=== PATIENT | female | born 1970 | race Two or more races ===

== ENCOUNTER 2021-02-10 13:20 | Outpatient (REF) | payer OTHER, SELFPAY ==
--- NOTE | ~2021-02-10 | XR_ITS ---
EXAMINATION: XR PELVIS XR HIP, RIGHT CLINICAL INFORMATION: Pain. COMPARISON: None TECHNIQUE: AP view of the pelvis. AP and frog-leg lateral views of the right hip. FINDINGS: No acute fracture or dislocation. Small right acetabular marginal osteophytes. No osseous erosion. No abnormal soft tissue calcification. XR/XR pelvis 1-2V IMPRESSION: Mild right hip osteoarthritis.
--- NOTE | ~2021-02-10 | XR_ITS ---
EXAMINATION: XR PELVIS XR HIP, RIGHT CLINICAL INFORMATION: Pain. COMPARISON: None TECHNIQUE: AP view of the pelvis. AP and frog-leg lateral views of the right hip. FINDINGS: No acute fracture or dislocation. Small right acetabular marginal osteophytes. No osseous erosion. No abnormal soft tissue calcification. XR/XR hip RT min 2V IMPRESSION: Mild right hip osteoarthritis.
== END 2021-02-10 13:21 | disposition home or self-care (01) ==
LOC: HO.HOSX 13:20
PROVIDERS: Visit Provider Physician Assistant
DX: M25.551 Pain in right hip (principal); M25.562 Pain in left knee; M16.11 Unilateral primary osteoarthritis, right hip; M17.12 Unilateral primary osteoarthritis, left knee; Z88.2 Allergy status to sulfonamides; Z91.030 Bee allergy status
CPT/HCPCS: 72170; 73502

== ENCOUNTER 2021-02-28 09:27 | Outpatient (REF) | payer OTHER, SELFPAY ==
[2021-02-28 11:07] LABS: Hemoglobin 12.7 g/dl (12.0-16.0); Mean Corpuscular HGB Conc 31.8 g/dl (31.0-35.0); Mean Corpuscular Hemoglobin 29.6 pg (27.0-33.0); Mean Corpuscular Volume 93.2 fL (80-98); Mean Platelet Volume 11.5 fL (9.4-12.3); Platelet Count 246 X10*3/uL (160-400); Red Blood Count 4.29 X10*6/uL (4.20-5.50); Red Cell Distribution Width 14.3 % (11.0-16.0); White Blood Count 5.4 X10*3/uL (4.8-10.8)
[2021-02-28 11:37] LABS: Thyroid Stimulating Hormone 0.75 uIU/mL (0.32-4.0)
[2021-02-28 14:40] LABS: CT PCR NOT DETECTED (Not Detect.); NG PCR NOT DETECTED (Not Detect.)
[2021-03-01 10:13] LABS: BV Int Neg Control Negative (Negative); BV Int Pos Control Positive (Positive)
[2021-03-04 06:56] LABS: HPV 16 RNA NOT DETECTED (NOT DETECTED); HPV mRNA E6/E7 rflx Detected (Not Detected)
== END 2021-02-28 09:28 | disposition home or self-care (01) ==
LOC: HO.LAB 09:27
PROVIDERS: PCP Internal Medicine; Visit Provider Advanced Practice Midwife
DX: Z12.4 Encounter for screening for malignant neoplasm of cervix (principal); Z11.51 Encounter for screening for human papillomavirus (HPV); Z11.3 Encounter for screening for infections with a predominantly sexual mode of transmission; N92.0 Excessive and frequent menstruation with regular cycle; N92.1 Excessive and frequent menstruation with irregular cycle
CPT/HCPCS: 36415; 84443; 85027; 87480; 87491; 87510; 87591; 87624; 87625; 87660; 88142

== ENCOUNTER 2021-03-29 13:52 | Outpatient (REF) | payer OTHER, SELFPAY ==
--- NOTE | ~2021-03-29 | US_ITS ---
EXAMINATION: US PELVIS CLINICAL INFORMATION: Excessive and frequent menstruation COMPARISON: None TECHNIQUE: Ultrasound of the pelvis is performed using both transabdominal and transvaginal transducers along with Doppler. Transvaginal imaging is performed due to inadequate visualization transabdominally. FINDINGS: Uterus: The uterus is anteverted anteflexed and measures 10.1 cm in length, 5.8 cm in AP and 6.8 cm in transverse dimension. There are at least 6 fibroids visualized. 1. Posterior fundal fibroid measures 3.9 x 3.6 x 3.5 cm. 2. Left anterior fundal fibroid measures 2.9 x 3.0 x 3.1 cm. 3. Right fundal anterior fibroid measures 1.6 x 1.4 x 1.5 cm. 4. Mid left body fibroid measures 3.9 x 3.8 x 3.7 cm. 5. Mid right body fibroid measures 3.8 x 3.8 x 3.8 cm. 6. Anterior right fibroid measures 0.8 x 0.5 x 0.7 cm. The double wall endometrial thickness is 0.9 mm. Adnexa: The ovaries are not visualized. There is no free fluid in the cul-de-sac. US/US pelvic and transvaginal IMPRESSION: At least 6 uterine fibroids visualized as described above. The uterus is enlarged. The ovaries are not seen. No free fluid in the cul-de-sac.
== END 2021-03-29 13:53 | disposition home or self-care (01) ==
LOC: HO.US 13:52
PROVIDERS: Visit Provider Advanced Practice Midwife
DX: N92.0 Excessive and frequent menstruation with regular cycle (principal)
CPT/HCPCS: 76830; 76856

== ENCOUNTER 2021-03-30 10:00 | Outpatient (REF) | payer OTHER, SELFPAY ==
[2021-03-31 09:28] LABS: BV Int Neg Control Negative (Negative); BV Int Pos Control Positive (Positive)
== END 2021-03-30 10:01 | disposition home or self-care (01) ==
LOC: HO.LAB 10:00
PROVIDERS: PCP Internal Medicine; Visit Provider Advanced Practice Midwife
DX: N92.0 Excessive and frequent menstruation with regular cycle (principal); R87.619 Unspecified abnormal cytological findings in specimens from cervix uteri; N89.8 Other specified noninflammatory disorders of vagina
CPT/HCPCS: 58100; 81025; 87480; 87510; 87660; 88305

== ENCOUNTER → 2021-04-03 10:55 | Outpatient (BNVA) | payer OTHER, SELFPAY | PROVIDERS: PCP Internal Medicine; Referring Provider Internal Medicine; Visit Provider Nurse Practitioner Family ==

== ENCOUNTER 2021-04-03 16:00 | Outpatient (RCR) | payer OTHER, SELFPAY ==
--- NOTE | 2021-03-01 18:01 | MHC.PT.EP ---
[facility] [place] Office [place] Office [place] Office [address] [phone] F: [phone] F: [phone] F: [phone] F: [phone] Physical Therapy Plan of Care Date of Evaluation: Date of Surgery: N/A Diagnosis: primary OA of L knee Assessment: pt overall w/ valgus and recurvatum tendencies of the knee. pt has excellent ROM but poor LE strength to support this flexibility. pt presents to physical therapy with pain, decreased range of motion, decreased strength, impaired functional mobility, impaired postural awareness, and gait deviations. pt is a good candidate for skilled PT due to age, potential remediation of impairments, typical disease/condition progression and prognosis, comorbidities, and motivation. pt would benefit from tailored strengthening and stretching exercise program, functional training, gait training, postural re-training, neuromuscular re-education, modalities as needed for pain, equipment safety demonstration. Frequency and Duration: The patient will be seen 2x/wk for 4 wks Short Term Goals: pt will be I w/ HEP to promote self-management of condition. pt will demo proper squat form x5 reps while picking up object from the ground to reduce stress on knee. Stock Plan Administrator Goals: pt will improve B quad strength to 5/5 to improve eccentric control while descending stairs to reduce pain. pt will report a statistically significant improvement w/ self-reported outcome measure, LEFI, to promote return to PLOF. Treatment Plan: Modalities to reduce pain, spasms and effusion. Manual therapy to restore motion and function. Therapeutic exercise to improve strength and flexibility. Neuromuscular re-education for posture and balance. Therapeutic activities to return to functional activities of daily living. Electronically signed by: Melissa Connor PT, DPT Please sign and return to therapist. Thank you for your referral.
--- NOTE | 2021-04-03 18:21 | MHC.PT.DC ---
[facility] [place] Office [place] Office [place] Office [address] [phone] F: [phone] F: [phone] F: [phone] F: [phone] Physical Therapy Discharge Report Diagnosis: osteoarthritis of L knee Date of Surgery: N/A Date of Evaluation: 03/01/21 Date of Discharge: Treatments to Date: 8 Cancellations to Date: 0 No Shows to Date: 1 Discharge Status: Achieved Goals Improved Function Independent with HEP Discharge Summary: Pt continues to be progressing well. She has made excellent progress since SOC and has met her STGs and LTGs. She is I with HEP and has improved her body mechanics throughout functional tasks. Pt is being D/C from skilled from skilled PT services at this time. Provided pt with updated, printed copy of HEP and theraband. Pt reports no further questions or concerns for PT at this time. Electronically signed by: Tara Ledesma, PT, DPT Please sign and return to therapist. Thank you for your referral.
== END 2021-04-03 18:21 | disposition home or self-care (01) ==
LOC: HO.PT 16:00
PROVIDERS: PCP Internal Medicine; Visit Provider Physician Assistant
DX: M17.12 Unilateral primary osteoarthritis, left knee (principal)
CPT/HCPCS: 97110; 97161; 97530

== ENCOUNTER → 2021-04-05 11:46 | Outpatient (BNVA) | payer OTHER, SELFPAY | PROVIDERS: Visit Provider Advanced Practice Midwife ==

== ENCOUNTER 2021-04-07 13:21 | Outpatient (REF) | payer OTHER, SELFPAY ==
--- NOTE | ~2021-04-07 | MM_ITS ---
EXAMINATION: MM SCREENING DIGITAL BREAST TOMOSYNTHESIS, BILATERAL CLINICAL INFORMATION: Screening. Asymptomatic. The lifetime risk of breast cancer based on the Tyrer-Cuzick Model is 11%. COMPARISON: Outside mammography 2-D images 06/12/2018 ([facility]); and outside exams 02/17/2014,06/11/2012 ([facility], [place], [place]). TECHNIQUE: Digital breast tomosynthesis is performed in both the craniocaudal and mediolateral oblique views along with computer-aided detection (CAD). Synthesized 2D images are generated from the tomosynthesis. FINDINGS: The breasts are heterogeneously dense, which may obscure small masses (ACR BI-RADS breast composition Category c). There is a smooth oval asymmetric density on the left CC view 6:30 o'clock position 7 cm from nipple measuring approximately 1 cm. No definite MLO correlate. Patient will be recalled to further characterize. This could represent a small cyst. The remainder the breasts show no significant mass or architectural abnormality. There are scattered punctate calcifications in the bilateral central and upper outer breasts similar to prior study 2018. The axilla and skin contours are unremarkable. MM/MM tomosynthesis screening BI IMPRESSION: 1. Left: Oval asymmetry posterior 6:30 o'clock position on CC view. 2. Right: No significant changes from prior outside exam. ASSESSMENT: BI-RADS 0: Incomplete - Need Additional Imaging Evaluation RECOMMENDATION: 1. Additional views of the left breast (spot CC, standard ML). 2. Targeted ultrasound if warranted after review of the additional views. 3. Radiology department staff will contact the patient for additional imaging. This patient's information was entered into a reminder system with a target due date for their next mammogram.
== END 2021-04-07 13:22 | disposition home or self-care (01) ==
LOC: HO.MAMMO 13:21
PROVIDERS: PCP Internal Medicine; Visit Provider Advanced Practice Midwife
DX: Z12.31 Encounter for screening mammogram for malignant neoplasm of breast (principal)
CPT/HCPCS: 77063; 77067

== ENCOUNTER 2021-04-11 13:58 | Outpatient (REF) | payer OTHER, SELFPAY | END 2021-04-11 13:59 | disposition home or self-care (01) | LOC: HO.LAB 13:58 | PROVIDERS: PCP Internal Medicine; Visit Provider Obstetrics & Gynecology | DX: R87.610 Atypical squamous cells of undetermined significance on cytologic smear of cervix (ASC-US) (principal); R87.810 Cervical high risk human papillomavirus (HPV) DNA test positive | CPT/HCPCS: 57454; 88305 ==

== ENCOUNTER 2021-04-13 07:29 | Outpatient (REF) | payer OTHER, SELFPAY ==
--- NOTE | ~2021-04-13 | MM_ITS ---
EXAMINATION: MM DIAGNOSTIC DIGITAL BREAST TOMOSYNTHESIS, LEFT CLINICAL INFORMATION: Recall from screening for question of benign oval asymmetric density lower left breast. COMPARISON: Mammography: 04/07/2021, outside mammography 06/12/2018 and 02/17/2014. TECHNIQUE: Digital breast tomosynthesis is performed. 2D images are generated from the tomosynthesis. The following views are obtained: Spot CC, MLO; magnification CC, magnification ML x2. FINDINGS: The breasts are heterogeneously dense, which may obscure small masses (ACR BI-RADS breast composition Category c). The additional views show no mass or architectural abnormality. No developing density from prior studies and anterior recent screening concern. Additional magnification views are obtained as there are small grouped calcifications present central and outer breast on left CC view and upper lower quadrant on left ML view. These are increased between 2013 and 2018. There are likely present in 2018, but better appreciated on current magnification views when compared with the prior synthesized 2-D mammography. Management plan is for short interval six-month follow-up left mammography to include magnification views. Results are discussed with the patient at time of visit. MM/MM tomosynthesis added views L IMPRESSION: 1. Additional views show no developing density or mass or architectural abnormality. 2. There are scattered probable benign groups of calcifications central outer and upper to lower left breast, increased from 2013 and likely without significant change from prior synthesized mammography 2018. ASSESSMENT: BI-RADS 3: Probably Benign RECOMMENDATION: Diagnostic left mammography in 6 months, to include magnification views. This patient's information was entered into a reminder system with a target due date for their next mammogram.
[2021-04-13 09:19] LABS: Alanine Aminotransferase 12 U/L (0-31); Albumin Level 4.2 g/dL (3.5-5.0); Alkaline Phosphatase 52 U/L (39-117); Anion Gap 9 (12-20); Aspartate Amino Transferase 18 U/L (5-31); Bilirubin Total 0.4 mg/dL (0.0-1.0); Blood Urea Nitrogen 12 mg/dL (9-16); Calcium 9.4 mg/dL (8.4-10.2); Carbon Dioxide 30 mmol/L (22-29); Chloride 107 mmol/L (96-108); Cholesterol 164 mg/dL; Estimated Glomerular Filt Rate > 60; Glucose Fasting 86 mg/dL (60-99); HDL Cholesterol 46 mg/dL; LDL Cholesterol Calculated 108 mg/dl; Potassium 4.2 mmol/L (3.3-5.1); Sodium 142 mmol/L (135-145); Total Protein 7.1 g/dL (6.5-8.0); Triglycerides 53 mg/dL
[2021-04-20 16:11] LABS: Vitamin D 25-OH, D2 <4 ng/mL; Vitamin D 25-OH, D3 26 ng/mL; Vitamin D 25-OH, Total 26 ng/mL (30-100)
== END 2021-04-13 07:30 | disposition home or self-care (01) ==
LOC: HO.MAMMO 07:29
PROVIDERS: Absent Provider Internal Medicine; PCP Internal Medicine; Visit Provider Advanced Practice Midwife
DX: R92.2 Inconclusive mammogram (principal); E55.9 Vitamin D deficiency, unspecified; Z82.49 Family history of ischemic heart disease and other diseases of the circulatory system
CPT/HCPCS: 36415; 77061; 77065; 80053; 80061; 82306

== ENCOUNTER → 2021-04-24 09:33 | Outpatient (BNVA) | payer OTHER, SELFPAY | PROVIDERS: Visit Provider Obstetrics & Gynecology ==

== ENCOUNTER 2021-07-17 08:49 | Day surgery (SDC) | payer OTHER, SELFPAY ==
[2021-07-11 09:20] VITALS: BMI 24.9
--- NOTE | 2021-07-17 07:28 | P.CONAN_ITS ---
[facility] Active Problems Active Problems: All Active Problems (Updated 04/11/21 @ 16:03 by Bianka cedeno MD) Family history of hypertension (Acute) ASCUS with positive high risk HPV cervical (Acute) Fibroids (Acute) Heavy menstrual bleeding (Acute) Vaginal discharge (Acute) Abnormal Pap smear of cervix (Acute) Abnormal uterine bleeding (AUB) (Acute) Heavy menstrual bleeding (Acute) Osteoarthritis of left knee (Acute) Osteoarthritis of right hip (Acute) Past Medical History Medical History Abnormal Pap smear of cervix Family history of hypertension Fibroids Functional capacity: independent ambulation Patient : No Family History Family History Father No problems noted. Mother No problems noted. Paternal Aunt History of breast cancer Father Lung cancer Surgical History Surgical History H/O bariatric surgery Social History Social History Housing: House Alcohol intake: current Alcohol intake frequency: holidays/special occasions only Alcohol type: wine Patient Tobacco Use Status: Never used Tobacco e-Cigarette/Vaping Use: Never Used Second Hand Smoke Exposure: No service: No Current occupational status: unemployed Current occupational exposures/hazards: No Meds Allergies Allergy/AdvReac Type Severity Reaction Status Date / Time bee pollen [bee Allergy Severe Anaphylaxis Verified 05/24/21 11:56 stings] Sulfa (Sulfonamide Allergy Severe skin rash Verified 04/11/21 15:54 Antibiotics) Home Medications Medication Instructions Recorded Confirmed Last Taken Type epinephrine 0.3 0.3 ml IM 04/05/21 04/11/21 Unknown History mg/0.3 mL injection, auto-injector Exam Exam Date and Time: July 17, 2021727 Height,Weight and Vital Signs: Height 5 ft 1 in Weight 59.874 kg Airway Mallampati Class: II TM Dist: >3cm Neck ROM: Full Heart: RRR Lungs: CTA
[2021-07-17 09:05] VITALS: BP 108/74; PULSE 58; RESP 16; TEMP 36.5; O2SAT 100
--- NOTE | 2021-07-17 09:08 | P.CONAN_ITS ---
[facility] Active Problems Active Problems: All Active Problems (Updated 04/11/21 @ 16:03 by Bianka cedeno MD) Family history of hypertension (Acute) ASCUS with positive high risk HPV cervical (Acute) Fibroids (Acute) Heavy menstrual bleeding (Acute) Vaginal discharge (Acute) Abnormal Pap smear of cervix (Acute) Abnormal uterine bleeding (AUB) (Acute) Heavy menstrual bleeding (Acute) Osteoarthritis of left knee (Acute) Osteoarthritis of right hip (Acute) Past Medical History Medical History Abnormal Pap smear of cervix Family history of hypertension Fibroids Functional capacity: independent ambulation Patient : No Family History Family History Father No problems noted. Mother No problems noted. Paternal Aunt History of breast cancer Father Lung cancer Family history of problems with anesthesia: No Surgical History Surgical History H/O bariatric surgery History of Problems with Anesthesia: No Social History Social History Housing: House Alcohol intake: current Alcohol intake frequency: holidays/special occasions only Alcohol type: wine Patient Tobacco Use Status: Never used Tobacco e-Cigarette/Vaping Use: Never Used Second Hand Smoke Exposure: No Use of substances other than those prescribed or required for medical reasons: No Are you DNR?: No Advance Directives: No Advance Directives Information Provided: Yes Patient : No service: No Current occupational status: unemployed Current occupational exposures/hazards: No Meds Allergies Allergy/AdvReac Type Severity Reaction Status Date / Time bee pollen [bee stings] Allergy Severe Anaphylaxis Verified 05/24/21 11:56 Sulfa (Sulfonamide Allergy Severe skin rash Verified 04/11/21 15:54 Antibiotics) Home Medications Medication Instructions Recorded Confirmed Last Taken Type epinephrine 0.3 mg/0.3 mL 0.3 ml IM 04/05/21 04/11/21 Unknown History injection, auto-injector Exam Exam Date and Time: July 17, 2021 0908 Height,Weight and Vital Signs: Height 5 ft 1 in Weight 59.874 kg Airway Mallampati Class: II TM Dist: >3cm Neck ROM: Full Heart: RRR Lungs: CTA Assessment and Plan Final Anesthetic Review Family History of Problems with Anesthesia: No History of Problems with Anesthesia: No NPO: Yes ASA Class: II Final Preanesthetic Review: No Changes in Pt Med Stat, Meds/Allgs Chart Reviewed, Consent Obtained/Reviewed and Anes Risks/Benef Reviewed Patient Risk: Low Procedure Risk: Low Anesthetic Plan Anesthetic Plan: MAC:
[2021-07-17] MEDS: Lactated Ringers 500 ML 20 ML IVCONT (09:35)
--- NOTE | 2021-07-17 09:56 | MHC.SHP ---
Pre-Procedural Eval Section A Date of Service: 07/17/21 The patient is an INPATIENT: No The History & Physical has been completed within 30 days and I have reviewed it.: No Section B Chief Complaint: Screening Relevant Family History (Specify if Yes): No Relevant Social History: None Present Medications: see Short Stay Collaborative assessment Medical History: Significant History (Abnormal Pap smear of cervix) History of Previous Operations: Relevant previous surgery/procedure and date(s) (History of bariatric surgery) Allergies: Allergies Allergy/AdvReac Type Severity Reaction Status Date / Time bee pollen [bee stings] Allergy Severe Anaphylaxis Verified 05/24/21 11:56 Sulfa (Sulfonamide Allergy Severe skin rash Verified 04/11/21 15:54 Antibiotics) Review of Systems Sugical H&P ROS: Negative: Constitution, Cardiovascular, Respiratory and Gastrointestinal Exam Surgical H&P Exam: Normal: Heart, Normal: Lungs, Normal: Extremities and Normal: Abdomen Plan Diagnosis/Plan: Unchanged I have reviewed the history and physical and performed a pertinent physical examination on my patient. No changes have occurred unless specified.
--- NOTE | 2021-07-17 10:01 | PM.OP ---
Brief Operative Note Date of Service: 07/17/21 Pre-op diagnosis: Colon cancer screening Post-op diagnosis: other (Diverticulosis, hemorrhoids) Procedure: COLONOSCOPY TILL CECUM Consent: Indications for the procedure and potential complications of bleeding, perforation, reaction to medications and missed diagnosis were discussed with the patient and informed consent was obtained. Instrument: Olympus PCF H 190 L variable stiffness pediatric colonoscope Monitoring: Vital signs and clinical assessment, intermittent blood pressure monitoring, continuous EKG monitoring, Pulse oximetry and Carbon Dioxide monitoring were done throughout the procedure. Colon withdrawl time was 16 minutes. Procedure: The patient was placed in the left lateral decubitis position and pre-procedure medications were administered. After a digital rectal examination of the ano-rectum, the video colonoscope was inserted into the rectum and advanced through the colon to the cecum. The colonoscope was slowly withdrawn in a retrograde panoramic fashion and the colon mucosa was carefully examined including a retroflexed view of the rectum. Findings and interventions are described below. Procedure Difficulty: Without difficulty Findings: Terminal Ileum: Not evaluated Cecum: Normal Ascending Colon: Normal Transverse Colon: Normal Descending Colon: Normal Sigmoid Colon: Moderate diverticulosis Rectum: Normal Ano-rectum: Moderate internal hemorrhoids Colon preparation: Good after some irrigation Impression and Post Procedure Diagnosis: Colonoscopy Findings: No polyps were detected Moderate diverticulosis seen in the sigmoid colon Moderate hemorrhoids on retroflexed exam. Plan: Await pathology results Patient has an appointment on 07/31/21 in the GI [facility] with Johanne Mae FNP-BC. Repeat Colonoscopy in 10 years. Above findings were reviewed with the patient and diverticulosis handout was given in the discharge area Surgeon: Heydi Grace MD Anesthesia: MAC (Dr Lemon) Was an Computer Network And Systems Engineer used for this Procedure?: Yes Computer Network And Systems Engineer: Alejandro Chandra Estimated blood loss (mL): 0 Pathology: none sent Condition: stable Disposition: PACU
[2021-07-17 10:40] VITALS: BP 78/43; PULSE 55; RESP 16; TEMP 36.2; O2SAT 97
[2021-07-17 10:45] VITALS: BP 85/49
[2021-07-17 10:50] VITALS: BP 96/58
[2021-07-17 10:55] VITALS: BP 91/61; PULSE 55; RESP 16
[2021-07-17 11:20] VITALS: BP 100/66; PULSE 52; RESP 16; TEMP 36.2; O2SAT 99
--- NOTE | 2021-07-17 13:11 | HO.POSTANES ---
Post Anesthesia Evaluation Post Anesthesia Evaluation Vital Signs: Vital Signs Temp Pulse Resp BP Pulse Ox 07/17/21 11:20 97.2 F 52 16 100/66 99 07/17/21 10:55 55 16 91/61 07/17/21 10:50 96/58 L 07/17/21 10:45 85/49 L 07/17/21 10:40 97.2 F 55 16 78/43 L 97 07/17/21 09:05 97.7 F 58 16 108/74 100 Anesthesia: Monitored Mental Status: Awake Pain Control: Satisfactory Nausea/Vomiting: None Hydration: Adequate Anesthesia-Related Issues: No Anes. Related Issues
== END 2021-07-17 11:45 | disposition home or self-care (01) ==
PROVIDERS: PCP Internal Medicine; Visit Provider Internal Medicine Gastroenterology
PROC: 0DJD8ZZ Inspection of Lower Intestinal Tract, Via Natural or Artificial Opening Endoscopic (ICD-10-PCS; CPT 45378; principal; 2021-07-17 08:30)
DX: Z12.11 Encounter for screening for malignant neoplasm of colon (principal); K57.30 Diverticulosis of large intestine without perforation or abscess without bleeding; K64.8 Other hemorrhoids; Z88.2 Allergy status to sulfonamides; Z98.84 Bariatric surgery status
CPT/HCPCS: 45378

== ENCOUNTER → 2021-07-31 08:07 | Outpatient (BNVA) | payer OTHER, SELFPAY | PROVIDERS: PCP Internal Medicine; Referring Provider Internal Medicine; Visit Provider Nurse Practitioner Family | DX: K57.90 Diverticulosis of intestine, part unspecified, without perforation or abscess without bleeding (principal); K64.8 Other hemorrhoids; Z98.890 Other specified postprocedural states | CPT/HCPCS: 99212 ==